=== PATIENT | female | born 2005 | race Caucasian/White ===

== ENCOUNTER 2024-10-22 11:10 | Emergency (ER) | payer SELFPAY ==
[2024-10-22 11:17] VITALS: BP 130/87; PULSE 91; RESP 19; TEMP 36.8; O2SAT 98; BMI 30.5
--- NOTE | 2024-10-22 11:43 | PD.EDFMALE ---
ED Female Urogenital RME/HPI General Chief complaint: Urogenital-Female Stated complaint: Vaginal bleeding x 2wks, weakness on control Time Seen by Provider: 10/22/24 11:21 Source: patient Arrival date/time: 10/22/24 11:10 This is a 19-year-old female presents to the emergency department with complaints of intermittent bleeding for 4 months. Patient reports she has had the Nexplanon inserted approximate 4 months ago and has had intermittent vaginal bleeding. Has done 1 round of control to help with the abnormal breathing with no improvement. Does have a follow-up appointment with her PCP for possible removal. Mode of arrival: ambulatory Related Data Previous Rx's ?Medication ?Instructions ?Recorded etodolac 400 mg tablet 400 mg PO BID PRN pain #20 tabs 09/02/20 cefuroxime axetil 250 mg tablet 250 mg PO Q12H #7 tabs 11/15/20 hydroxyzine pamoate 25 mg capsule 25 mg PO TID PRN anxiety #30 caps 03/22/21 (Vistaril) albuterol sulfate 90 mcg/actuation 2 puff inhalation Q6H PRN 02/02/22 aerosol inhaler shortness of breath or wheezing #18 grams benzonatate 200 mg capsule 200 mg PO TID PRN cough #30 caps 02/02/22 cyclobenzaprine 10 mg tablet 10 mg PO TID PRN muscle spasm #20 02/02/22 tabs ibuprofen 600 mg tablet 600 mg PO Q6H PRN fever or pain 02/02/22 #30 tabs amoxicillin 500 mg capsule 500 mg PO Q12H #14 caps 03/22/22 loperamide 2 mg capsule (Imodium 2 mg PO Q6H PRN loose stool #14 12/22/22 A-D) caps ondansetron 4 mg disintegrating 4 mg PO Q6H PRN nausea and 12/22/22 tablet vomiting #14 tabs ibuprofen 600 mg tablet 600 mg PO Q8H PRN fever or pain 10/01/23 #30 tabs Allergies Allergy/AdvReac Type Severity Reaction Status Date / Time No Known Allergies Allergy Verified 10/22/24 11:13 Review of Systems Review of Systems Systems Reviewed: All systems reviewed, normal except as documented Narrative Review of Systems: Gen: No fever, no chills, no weight loss EYES: No discharge, no visual changes, no pain HEENT: No ear pain, no congestion, no sore throat PULM: No shortness of breath, no cough, no congestion CV: No chest pain, no dyspnea on exertion, no palpitations GI: No nausea, no vomiting, no diarrhea, no pain, no constipation : No frequency, no urgency, no dysuria Musc/skel: No joint pain, no back pain Skin: No rash Psyc: No hallucinations, no depression Heme/Lymph: No easy bleeding or bruising tendencies Neuro: No weakness, no headache ED Exam Narrative Physical exam: General: Sittiing in Exam table in no acute distress, answering questions appropriately HENT: normocephalic, atraumatic, EOMI, PERRLA, moist mucous membranes Chest: chest wall is nontender Cardiac: regular rate and rhythm, normal S1 and S2, no murmurs, rubs, or gallops, capillary refill ?2 seconds Pulmonary: clear to auscultation bilaterally, no wheezing, crackles, or rhonchi Abdominal: active bowel sounds, soft, nontender, nondistended Neuro: A&OX3, CN II-XII intact, sensation grossly intact bilaterally in UE and LE. Skin: no rashes, no ecchymosis Ext: no lower extremity edema Course Quality Measures none Orders Category Date Time Status CBC Stat Lab 10/22/24 11:42 Ordered HCG,Qualitative Serum Stat Lab 10/22/24 11:42 Ordered Vital Signs Vital signs: Vital Signs Temperature 98.2 F 10/22/24 11:17 Pulse Rate 91 10/22/24 11:17 Respiratory Rate 19 10/22/24 11:17 Blood Pressure 130/87 H 10/22/24 11:17 Pulse Oximetry (%) 98 10/22/24 11:17 Oxygen Delivery Method Room Air 10/22/24 11:17 Urogenital - Female MDM Narrative MDM Narrative:: I did advise and reassured patient abnormal vaginal bleeding occurs with Nexplanon. Treatment normally is round of control for 1 month to normalize menses. She advises that she has completed 1 month of control. Appears patient left before any labs or further workup. Patient data External records reviewed:: [facility] previous records Clinical information provided by:: patient Social determinants that could affect healthcare access:: none Patient has the following chronic illnesses:: None How is presenting disease/condition affected by chronic disease/condition?: no chronic disease Evaluation data The following diagnostics were reviewed and interpreted by me:: lab results Lab and/or radiology exams considered but not ordered:: No Interpretation Summary: See above Medications / Prescriptions Medications or Prescriptions considered but not ordered:: No Medication administrations:: No Consultations Consultation(s) initiated? (list below): No Diagnosis Urogenital Female Differential Diagnosis: dysmenorrhea and other (Anemia, ovarian cyst, . Drug-induced bleeding.) Most likely diagnosis given after review of the tests above:: Abnormal menses. Admission Indicated Admission indicated?: not indicated Admission Request Was there a request for admission?: No Disposition Plan Disposition Plan: other (specify) Discharge Attestation Discharge Attestation: Left AGAINST MEDICAL ADVICE Discharge Plan Plan Patient Disposition: Left Against Medical Advice Patient condition on transfer: Stable Prescriptions/Referrals Prescriptions/Med Rec: No Action cefuroxime axetil 250 mg tablet 250 mg PO Q12H Qty: 7 0RF benzonatate 200 mg capsule 200 mg PO TID PRN (Reason: cough) Qty: 30 0RF albuterol sulfate 90 mcg/actuation HFA aerosol inhaler 2 puff inhalation Q6H PRN (Reason: shortness of breath or wheezing) Qty: 18 0RF ibuprofen 600 mg tablet 600 mg PO Q6H PRN (Reason: fever or pain) Qty: 30 0RF cyclobenzaprine 10 mg tablet 10 mg PO TID PRN (Reason: muscle spasm) Qty: 20 0RF amoxicillin 500 mg capsule 500 mg PO Q12H Qty: 14 0RF etodolac 400 mg tablet 400 mg PO BID PRN (Reason: pain) Qty: 20 0RF hydroxyzine pamoate [Vistaril] 25 mg capsule 25 mg PO TID PRN (Reason: anxiety) Qty: 30 0RF ibuprofen 600 mg tablet 600 mg PO Q8H PRN (Reason: fever or pain) Qty: 30 0RF loperamide [Imodium A-D] 2 mg capsule 2 mg PO Q6H PRN (Reason: loose stool) Qty: 14 0RF ondansetron 4 mg tablet,disintegrating 4 mg PO Q6H PRN (Reason: nausea and vomiting) Qty: 14 0RF Problem List Clinical Impression: Irregular menstrual bleeding Patient/Caregiver Discharge Instructions Discharge Activity: activity as tolerated Print Language: Montserratian PA/DIRECTOR FEDERAL Supervising Physician PA/DIRECTOR FEDERAL Supervising Physician: Dr Grace
--- NOTE | 2024-10-22 13:20 | PC.NURSE ---
STAFF CALLED PATIENT IN THE LOBBY AND OUTSIDE, NO ANSWER RECEIVED.
--- NOTE | 2024-10-22 13:49 | PC.NURSE ---
NO ANSWER WHEN CALLED FROM [facility]
--- NOTE | 2024-10-22 15:44 | PC.NURSE ---
no answer when called from lobby, patient no where in the ER.
== END 2024-10-22 15:46 | disposition left against medical advice (07) ==
LOC: SERX 14:07
PROVIDERS: Emergency Provider Emergency Medicine
DX: N92.6 Irregular menstruation, unspecified (principal)
CPT/HCPCS: 84703; 85025; 99281